=== PATIENT | male | born 1955 ===

== ENCOUNTER 2018-11-20 07:13 | Outpatient (CLI) | payer OTHER | END 2018-11-20 07:14 | disposition home or self-care (01) | LOC: C.PAT 07:13 | DX: K80.10 Calculus of gallbladder with chronic cholecystitis without obstruction (principal) ==

== ENCOUNTER 2018-11-25 05:56 | Day surgery (SDC) | payer OTHER ==
[2018-11-25 07:36] VITALS: BMI 23.6
[2018-11-25] MEDS ORDERED: Bupivacaine 0.25% 20 ML INJ IJ ONE (07:48)
[2018-11-25] MEDS ORDERED: ceFAZolin 1 gm in NS 2 GM/200 ML BAG IVPB ONE (07:48)
[2018-11-25] MEDS ORDERED: Lidocaine/Epinephrine 1% 1:100000 10 ML IJ ONE (07:48)
[2018-11-25] MEDS ORDERED: Midazolam 2 MG/2 ML VIAL ONE (07:49)
[2018-11-25] MEDS ORDERED: Rocuronium 10 mg/ml (5 ml) ONE (07:50)
[2018-11-25] MEDS ORDERED: Succinylcholine Chloride 20 mg/ml Syr (5 ml) IV ONE (07:50)
[2018-11-25] MEDS ORDERED: Propofol 10 mg/ml Inj (20 ML) ONE (07:50)
[2018-11-25] MEDS ORDERED: Bupivacaine Liposomal Inj 20 ml INFIL ONE (08:15)
[2018-11-25] MEDS ORDERED: Neostigmine 1:1000 (1 mg/ml) Inj ONE (08:16)
--- NOTE | 2018-11-25 09:04 | PCM.SURG1 ---
Surgeon's Initial Post Op Note - Surgeon's Notes Surgeon: Dr. Mackey Stage Rigger: Geetha ARROYO Type of Anesthesia: General Endo, Local Anesthesia Administered By: Dr. Vigil Pre-Operative Diagnosis: Cholelithiasis, biliary colic Operative Findings: Cholelithiasis, chronic cholecystitis, adhesions Post-Operative Diagnosis: Cholelithiasis, biliary colic, chronic cholecystitis Operation Performed: Robotic cholecystectomy with lysis of adhesions Specimen/Specimens Removed: gallbladder Estimated Blood Loss: EBL {In ML}: 10 Blood Products Given: N/A Drains Used: No Drains Post-Op Condition: Good Date of Surgery/Procedure: 11/25/18 Time of Surgery/Procedure: 09:04
[2018-11-25] MEDS ORDERED: Oxycodone/Acetaminophen 5/325 mg Tab PO PRN (09:05)
[2018-11-25] MEDS: HYDROmorphone 0.5 mg/0.5 ml ISec IVP PRN ×2 (09:25→10:00)
[2018-11-25] MEDS ORDERED: Lactated Ringer's 500 ML IV ONE (10:28)
[2018-11-25 10:43] VITALS: RESP 18
[2018-11-25 11:22] VITALS: BP 151/82; PULSE 71; TEMP 97.8; O2SAT 99
--- NOTE | 2018-11-25 15:00 | OP ---
PROCEDURE DATE: 11/25/2018 PREOPERATIVE DIAGNOSES: 1. Chronic cholecystitis and cholelithiasis. 2. Abdominal pain. POSTOPERATIVE DIAGNOSES: 1. Chronic cholecystitis and cholelithiasis. 2. Extensive postinflammatory peritonealization in the right upper quadrant. PROCEDURES: 1. Robotic cholecystectomy. 2. Robotic enterolysis and lysis of adhesion. 3. Laparoscopic bilateral transversus abdominus plane block placement. 4. Robotic Indocyanine Green angiography. SURGEON: George Mackey MD [employer]: CRUZ Wilson TYPE OF ANESTHESIA: General endotracheal tube anesthesia. ESTIMATED BLOOD LOSS: Around 10 mL. DRAIN: None. PATHOLOGY: Gallbladder with gallstones was sent for the pathology. INTRAOPERATIVE FINDINGS: The patient had extensive omental, colonic as well as duodenalization in the right upper quadrant to the duodenum as well as to the infundibulum as well as to the liver, and approximately 15-to 20-minute time was spent just for enterolysis and lysis of adhesion to identify the anatomy. DESCRIPTION OF PROCEDURE: On intraoperative steps, this 63-year-old male was diagnosed with a chronic cholecystitis and cholelithiasis and the patient was consented for the robotic cholecystectomy and possible open, brought to the OR, placed on the operating table. After induction of the anesthesia, the abdomen was prepped and draped in the usual sterile fashion. The supraumbilical transverse incision was made using the open technique. Peritoneal cavity was entered and pneumo was created. Another 3-8 mm port was placed in the upper abdomen. Robot was brought in. Camera arm as well as arm 1 and arm 2 was docked and the gallbladder appeared to be adhesed to the omentum, colon, as well as the duodenum. The first enterolysis was done and the body of the gallbladder as well as the infundibulum was identified. Now, the gallbladder was retracted cranially. The Calot's triangle was identified and again enterolysis was done to identify the ductal anatomy and the posterior and anterior leaflet was dissected. The cystic duct and cystic artery was identified. The intraoperative Firefly was used to identify the ductal anatomy. Cystic duct and cystic artery as well as the common bile duct was identified. Now, the cystic duct and cystic artery was clipped at three places and cut in between two clips in the gallbladder. Gallbladder were dissected free from the gallbladder fossa, taken in an EndoCatch bag, taken out through the umbilical port site and sent off the table for the pathology. Now, the TAP block was given. The 30:30 mL of Exparel with the saline was injected in the transverse abdominis muscles plane area bilaterally, left and the right side, and after proper TAP block, all the instrument was taken out, robot was undocked. All the ports were taken out under vision. Pneumo was deflated. The umbilical port site was closed in two layer, the fascia with 0 Vicryl interrupted suture, skin with 4-0 Monocryl, and dry sterile dressing was applied. The patient tolerated the procedure well. Count of instrument and gauze was correct. There was no apparent complication. George Mackey MD
== END 2018-11-25 11:39 | disposition home or self-care (01) ==
LOC: C.SDS 05:56
PROVIDERS: ATTEND Surgery Surgical Critical Care
DX: K80.10 Calculus of gallbladder with chronic cholecystitis without obstruction (principal)
CPT/HCPCS: 38570; 47562; 82948; 88304; J0690; J1170; J2001; J2250; J2405; J2704; J2710; J3010; J7030; J7120